=== PATIENT | female | born 1980 | race Caucasian/White ===

== ENCOUNTER 2018-03-21 10:21 | Emergency (ER) | payer OTHER ==
[~2018-03-21] VITALS: Ht 162.6 cm; Wt 72.6 kg
[2018-03-21] MEDS ORDERED: IBUPROFEN600 MG PO (14:01)
[2018-03-21] MEDS ORDERED: NORCO 5-325 TA1 EACH PO (14:01)
[2018-03-21] MEDS ORDERED: DOXYCYCLINE HY100 MG PO (14:01)
== END 2018-03-21 14:38 | disposition home or self-care (01) ==
LOC: ED 10:21
DX: N73.0 Acute parametritis and pelvic cellulitis (principal); N70.11 Chronic salpingitis
CPT/HCPCS: 74177; 76830; 76856; 80053; 81001; 83690; 84703; 85025; 87210; 87491; 87591; 96361; 96374; 96375; 96376; 99284; 99406; J0696; J1885; J2270; J2405; J2543; J7030; Q9967

== ENCOUNTER 2018-03-22 10:08 | Inpatient (IN) | payer OTHER ==
[~2018-03-22] VITALS: Ht 162.6 cm; Wt 72.6 kg
[~2018-03-22 10:08] MED LIST: DOXYCYCLINE HY100 MG PO; IBUPROFEN600 MG PO; NORCO 5-325 TA1 EACH PO
== END 2018-03-23 18:50 | disposition left against medical advice (07) | DRG 758 ==
LOC: ED 10:08 → MS 13:52
PROVIDERS: ADMIT Obstetrics & Gynecology
DX: A54.24 Gonococcal female pelvic inflammatory disease (principal); F15.20 Other stimulant dependence, uncomplicated; F17.210 Nicotine dependence, cigarettes, uncomplicated
CPT/HCPCS: 80048; 85025; 99406; J0694; J1170; J1885; J2270; J2405; J7030; J7120